=== PATIENT | female | born 1990 | race Caucasian/White ===

== ENCOUNTER 2017-12-11 16:53 | Emergency (ER) | payer MEDICAID ==
[~2017-12-11] VITALS: Ht 165.1 cm; Wt 98.1 kg
[2017-12-11 17:05] VITALS: BP 112/70
--- NOTE | 2017-12-11 17:18 | NUR ---
PATIENT PRESENTS TO ED WITH ITCHY THROAT STARTED YESTERDAY. DENIES N/V/D; SKIN IS PINK/WARM/DRY; AAOX4 WITH EVEN AND STEADY GAIT; HR EVEN AND REGULAR; PT DENIES ANY FEVER, CP, SOB BUT C/O COUGH AT THIS TIME; PATIENT STATES PAIN OF 0/10 AT THIS TIME; VSS; PATIENT POSITIONED FOR COMFORT; HOB ELEVATED; BEDRAILS UP X2; BED DOWN. ER MD MADE AWARE OF PT STATUS.
--- NOTE | 2017-12-11 18:17 | NUR ---
Patient discharged with v/s stable. Written and verbal after care instructions given and explained. Patient verbalized understanding. Ambulatory with steady gait. All questions addressed prior to discharge. Advised to follow up with PMD.
[2017-12-11 18:18] VITALS: BP 112/70
== END 2017-12-11 18:17 | disposition home or self-care (01) ==
LOC: MED 16:53
DX: J35.8 Other chronic diseases of tonsils and adenoids (principal)
CPT/HCPCS: 99281